=== PATIENT | female | born 1995 | race Caucasian/White ===

== ENCOUNTER 2017-06-03 19:34 | Emergency (ER) ==
[2017-06-03 19:44] VITALS: BP 106/60; TEMP 98.2; BMI 21.6
[2017-06-03] MEDS ORDERED: TETRACAINE 0.5% UNIT-DOSE OP STA (20:05)
[2017-06-03] MEDS ORDERED: EYE-STREAM OP STA (20:05)
[2017-06-03] MEDS ORDERED: FLUORETS OP STA (20:05)
[2017-06-03] MEDS ORDERED: TETRACAINE 0.5% UNIT-DOSE OP ONE (20:13)
[2017-06-03] MEDS ORDERED: EYE-STREAM OP ONE (20:13)
[2017-06-03] MEDS ORDERED: FLUORETS OP ONE (20:13)
--- NOTE | 2017-06-03 20:24 | ED.PDOC ---
General ED Provider: Dr. MAHOGANY MORRISON Chief Complaint: Eye Problem Stated Complaint: Patient states she was scracted by a small kitten on the right eye 6 hours ago. Pain has be mild but constant feels like there is something in the eye. Vision is intact. Time Seen by Physician: 20:00 Mode of Arrival: Walk-In Information Source: Patient Primary Care Provider: YOAN GRAMAJO Nursing and Triage Documentation Reviewed and Agree: Yes Reviewed sepsis parameters & appropriate labs ordered?: No System Inflammatory Response Syndrome: Not Applicable Sepsis Protocol: For patient's 13 years and over: Temp is 96.8 and below OR 101 and greater Pulse >90 BPM Resp >20/minute Acutely Altered Mental Status Are patient's symptoms suggestive of a new infection, such as: -Pneumonia -Skin, Soft Tissue -Endocarditis -UTI -Bone, Joint Infection -Implantable Device -Acute Abdominal Infection -Wound Infection -Meningitis -Blood Stream Catheter Infection -Unknown System Inflammatory Response Syndrome: Not Applicable EENT Complaint Exam - Eye Complaint/Exam Onset/Duration: 6 hours Symptoms Are: Still present Timing: Constant Initial Severity: Moderate Current Severity: Mild Location: Right Character: Reports: Foreign body sensation Aggravating: Reports: Light, Blinking Alleviating: Reports: None Associated Signs and Symptoms: Denies: Photophobia, Clear drainage, Purulent drainage, Vision impairment, Fever, Swelling Eye Surgical History: Reports: None Penetrating Injury Risk Factors: Grinding (from cat ) Globe Rupture Risk Factors: None Acute Glaucoma Risk Factors: None Optic Artery Occlusion Risk Factors: None Visual Acuity Right Eye: 20/20 Visual Acuity Left Eye: 20/15 Visual Field: Normal Extraocular Movement: Normal Orbit Findings: Normal Globe Findings: Intact Lid Findings: Normal Corneal Findings: Clear Fluorescein Uptake: Yes (3 o'clock position measuring 2 mm. ) Fundi: Normal Eye Picture: 1 - 2mm uptake - corneal abrassion Differential Diagnoses: Corneal Abrasion Review of Systems - Review Of Systems Constitutional: Reports: No symptoms Eyes: Reports: Foreign body sensation, Pain. Denies: Blurred vision, Vision change Ears, Nose, Mouth, Throat: Reports: No symptoms Respiratory: Reports: No symptoms Cardiac: Reports: No symptoms GI: Reports: No symptoms : Reports: No symptoms Musculoskeletal: Reports: No symptoms Skin: Reports: No symptoms Neurological: Reports: No symptoms Endocrine: Reports: No symptoms Hematologic/Lymphatic: Reports: No symptoms All Other Systems: Reviewed and Negative Past Medical History - Past Medical History Previously Healthy: Yes Endocrine: Reports: None Cardiovascular: Reports: None Respiratory: Reports: None Hematological: Reports: None Gastrointestinal: Reports: None Genitourinary: Reports: None Neuro/Psych: Reports: None Musculoskeletal: Reports: None Cancer: Reports: None Last Menstrual Period: finished few days ago - Surgical History General Surgical History: Reports: Tonsillectomy - Family History Family History: Reports: Unknown - Social History Smoking Status: Current every day smoker, Heavy tobacco smoker Hx Substance Use: No Alcohol Screening: None Physical Exam - Physical Exam Appearance: Well-appearing, No pain distress, Well-nourished Eyes: ЕЛЕНА, EOMI ENT: Nose normal, Oropharynx normal Neck: Supple Musculoskeletal: ROM intact Skin: Warm, Dry, Normal color Neurological: Sensation intact, Alert, Oriented Psychiatric: Anxious Critical Care Note - Critical Care Note Total Time (mins): 0 Course - Course Orders, Labs, Meds: Orders Category Date Time Status Balanced Salt Solution [Eye-Stream] MEDS 06/03/17 20:05 Stat 1 bottle OP ONCE STA Fluorescein Sodium [Fluorets] MEDS 06/03/17 20:05 Stat 1 strip OP ONCE STA Tetracaine HCl/Pf [Tetracaine 0.5% Unit-Dose] MEDS 06/03/17 20:05 Stat 2 drop OP ONCE STA Medications Discontinued Medications Generic Name Dose Route Start Last Admin Trade Name Demian PRN Reason Stop Dose Admin Eye Irrigation Solution 1 bottle 06/03/17 20:05 Eye-Stream OP 06/03/17 20:06 ONCE STA Fluorescein Sodium 1 strip 06/03/17 20:05 Fluorets OP 06/03/17 20:06 ONCE STA Tetracaine HCl 2 drop 06/03/17 20:05 Tetracaine 0.5% Unit-Dose OP 06/03/17 20:06 ONCE STA Vital Signs: Temp Pulse Resp BP Pulse Ox 06/03/17 19:37 98.2 F 80 20 106/60 98 Departure - Departure Time of Disposition: 20:30 Disposition: HOME SELF-CARE Discharge Problem: Corneal abrasion, right Qualifiers: Encounter type: initial encounter Qualified Code(s): S05.01XA - Injury of conjunctiva and corneal abrasion without foreign body, right eye, initial encounter Instructions: Corneal Abrasion (ED) Condition: Stable Pt referred to PMD for follow-up: Yes IPMP verified?: No Additional Instructions: Use eye Drop to the right eye as prescribed Follow up with PCP`in 3 days Follow up with the Eye clinic in 3 days Return if worse. Prescriptions: Ciprofloxacin Opth Carmelina [Cipro 0.3% Opth Carmelina] 1 drop OP Q4HR #10 drops Allergies/Adverse Reactions: Allergies Penicillins Adverse Reaction (Verified 06/03/17 19:44) Home Medications: Ambulatory Orders Ciprofloxacin Opth Carmelina [Cipro 0.3% Opth Carmelina] 1 drop OP Q4HR #10 drops 06/03/17 Disposition Discussed With: Patient, Family
== END 2017-06-03 20:45 | disposition home or self-care (01) ==
LOC: ED 19:34
DX: S05.01XA Injury of conjunctiva and corneal abrasion without foreign body, right eye, initial encounter (principal); W55.03XA Scratched by cat, initial encounter; F17.210 Nicotine dependence, cigarettes, uncomplicated
CPT/HCPCS: 99283